=== PATIENT | female | born 1945 | race Caucasian/White ===

== ENCOUNTER 2019-01-23 01:30 | Outpatient (CLI) | payer MEDICARE, SELFPAY ==
[2019-01-23 08:07] LABS: ALT 27 U/L (12-78); AST 14 U/L (15-37); Albumin 3.6 g/dL (3.4-5.0); Alkaline Phosphatase 85 U/L (46-116); Bilirubin, Total 0.4 mg/dL (0.2-1.0); CREATININE 0.83 mg/dL (0.55-1.02); Potassium 4.2 mmol/L (3.5-5.1); Total Protein 7.5 g/dL (6.4-8.2)
[2019-01-23 08:18] LABS: Calculated LDL 132 mg/dL; Cholesterol 235 mg/dL (50-200); GGT 33 U/L (5-55); HDL Cholesterol 97 mg/dL (40-60); Triglyceride 33 mg/dL (30-150)
== END 2019-01-23 01:50 ==
PROVIDERS: PCP Family Medicine; Visit Provider Family Medicine
DX: I10 Essential (primary) hypertension (principal); E78.5 Hyperlipidemia, unspecified; E66.3 Overweight
CPT/HCPCS: 36415; 80061; 80076; 83721; 82565; 82977; 84132

== ENCOUNTER → 2019-02-02 12:59 | Outpatient (BNVA) | payer MEDICARE, SELFPAY | PROVIDERS: PCP Family Medicine; Referring Provider Family Medicine; Visit Provider Surgery | DX: L72.0 Epidermal cyst (principal); I10 Essential (primary) hypertension | CPT/HCPCS: 99212; 99213 ==

== ENCOUNTER → 2019-02-09 10:58 | Outpatient (BNVA) | payer MEDICARE, SELFPAY | PROVIDERS: PCP Family Medicine; Referring Provider Family Medicine; Visit Provider Surgery | DX: L72.3 Sebaceous cyst (principal) | CPT/HCPCS: 11440 ==

== ENCOUNTER 2020-01-25 02:17 | Outpatient (CLI) | payer MEDICARE, SELFPAY ==
[2020-01-25 08:46] LABS: CREATININE 0.75 mg/dL (0.55-1.02); Calculated LDL 133 mg/dL (<100); Cholesterol 209 mg/dL (<200); Glucose 107 mg/dL (74-106); HDL Cholesterol 63 mg/dL (40-60); Potassium 3.7 mmol/L (3.5-5.1); Triglyceride 66 mg/dL (<150)
[2020-01-30 03:34] LABS: 1,25-Dihydroxyvitamin D 35 pg/mL (18-78)
== END 2020-01-25 02:37 ==
PROVIDERS: PCP Family Medicine; Visit Provider Family Medicine
DX: I10 Essential (primary) hypertension (principal); E55.9 Vitamin D deficiency, unspecified; R73.9 Hyperglycemia, unspecified
CPT/HCPCS: 36415; 80061; 82947; 82565; 82652; 84132

== ENCOUNTER 2020-04-14 00:47 | Outpatient (CLI) | payer MEDICARE, SELFPAY ==
--- NOTE | 2020-04-14 08:00 | DI.US_ITS ---
EXAM: US PELVIS TRANSVAGINAL CLINICAL HISTORY: POSTMENOPAUSAL VAGINAL BLEEDING,N95.0 TECHNIQUE: Ultrasound performed using standard protocol. COMPARISON: US PELVIS TRANSVAG from 04/04/2017 FINDINGS: Pelvic ultrasound was performed transabdominally and transvaginally. There is an incidental finding of a 2 cm in diameter vascular mass of floor of the urinary bladder hi ghly suspicious for transitional cell carcinoma. The ovaries have normal appearance, measuring 21 x 14 x 13 millimeters in diameter for the right ovar y 25 x 12 x 14 millimeters in diameter for the left ovary. Myometrium is unremarkable in appearance and the uterus measures 62 x 26 x 32 millimeters with a 2 mi llimeter homogeneous endometrial stripe. There is small quantity of fluid in the cervical canal which is an abnormal finding in this age group . IMPRESSION: Incidental finding of urinary bladder mass highly suspicious for transitional cell carcinoma. Correl ation with cystoscopy recommended. Nonspecific fluid in the cervical canal, possibility of endometrial pathology is raised, endometrial biopsy should be considered. DATA REPOSITORY:
== END 2020-04-14 01:07 ==
PROVIDERS: PCP Family Medicine; Visit Provider Nurse Practitioner Family
DX: N32.89 Other specified disorders of bladder (principal); N95.0 Postmenopausal bleeding
CPT/HCPCS: 76830; 76856

== ENCOUNTER → 2020-04-22 12:58 | Outpatient (BNVA) | payer MEDICARE, SELFPAY | PROVIDERS: PCP Family Medicine; Referring Provider Family Medicine; Visit Provider Urology | DX: N32.89 Other specified disorders of bladder (principal); I10 Essential (primary) hypertension | CPT/HCPCS: 81003; 99203; 99214 ==

== ENCOUNTER 2020-05-01 08:45 | Outpatient (CLI) | payer MEDICARE, SELFPAY ==
[2020-05-03 10:19] LABS: SARS-CoV-2 RNA Not Detected (NotDetected); SARS-CoV-2 RNA Source Nasal/Nares
== END 2020-05-01 09:05 ==
PROVIDERS: PCP Family Medicine; Visit Provider Urology
DX: Z11.59 Encounter for screening for other viral diseases (principal); Z01.818 Encounter for other preprocedural examination
CPT/HCPCS: U0003

== ENCOUNTER 2020-05-05 09:01 | Day surgery (SDC) | payer MEDICARE, SELFPAY ==
[2020-05-05 09:19] VITALS: BP 145/92; PULSE 83; RESP 16; TEMP 36.3; O2SAT 97
[2020-05-05] MEDS: Lactated Ringers 1,000 ML 80 ML IV (09:53)
--- NOTE | 2020-05-05 11:51 | HPE_ITS ---
Date of service: 05/05/20 Time of Service: 11:51 Assessment and Plan Assessment and plan (1) Bladder mass: Status: Acute Assessment and plan: We will go ahead with cystoscopy and TURBT History of Present Illness History of Present Illness Chief Complaint: Bladder mass Narrative: This is a 74-year-old woman [facility] The patient was being evaluated for vaginal bleeding. She had a pelvic ultrasound which showed an incidental bladder mass. She admits that she has noticed her urine is a bit darker in the past few weeks. She also has some intermittent flow which seems to be new for her. She has not seen gross hematuria or particles within the urine. She has no flank pain. She is a previous smoker having quit over 23 years ago. She is not on any types of blood thinners. She has not had any prior bladder surgeries. Review of Systems Narrative: No fevers or chills. c/o fatigue No dysphasia No diabetes or thyroid No shortness of breath, cough or hemoptysis No chest pain or palpitations No nausea, vomiting, hepatitis, ulcers, jaundice, diarrhea or constipation No seizures, strokes or peripheral neuropathy No bleeding disorders or anemia No gout. Hx low back discomfort [facility] Medical History (Updated 05/05/20 @ 11:51 by Pan Hazel MD) Back pain Bladder mass Breast cancer Depression Hyperlipidemia Hypertension Overweight Post-menopausal bleeding 2010. onset. u/s 3mm ES. Uterus [id number]. EMBx: atrophic endometrium. 2011. continued daily bleeding. Hysteroscopy, D&C. Inactive endometrium. 2012. continued daily dark/brown blood. 2014. u/s ES 3mm. 2015. No w/u. 11/2016. contact bleeding at ext os. Sebaceous cyst Surgical History (Updated 05/05/20 @ 09:37 by Josefina Acuna) Abnormal vaginal bleeding (05/10/17) Multiple U/S of ES and several EMBX. 05/04/2017 Hysteroscopy and D&C. Benign findings. 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 Daughter No problems noted. Brother No problems noted. Brother No problems noted. Brother No problems noted. Social History (Updated 01/28/20 @ 16:42 by Heather Lopez) Smoking/Tobacco Use Status: Former Tobacco Use Tobacco: How many years used: 24 Second Hand Exposure: Yes Smoking risk assessment performed?: Yes Alcohol Intake: current Alcohol Intake frequency: 0-2 drinks per day Alcohol type: hard liquor Drug use: Never Substance use type: does not use Caregiver/Support person: No Household members: spouse and other Details: [place] Housing: house Number of Children: 2 Communication Needs: None Do you need help understanding health information?: Never Pets and animals: No Sexually active: No Do you think of yourself as: straight/heterosexual Current gender identity: female What is your relationship status?: How often do you talk on the phone with friends or family?: once per week Panel score (0-1 are the most socially isolated patients): 1 What type of physical activity do you participate in: bicycling Duration: 15-30 minutes/day Frequency: 5-6 times per week Emi/Restoration: Holiness Seatbelt use: always Helmet use: Yes Drive intox or ride w/intox 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: No Do you feel safe at home: Yes Do you feel safe in your relationship?: Yes Additional Social history: Patient is daughter that resides in [place] Female Reproductive History Menstrual Menopause type: natural History History 2 Para Hx # Term Pregnancies 2 Multiple births Hx # Pregnancies Ectopic pregnancies AB induced Hx Number of Living Children AB spontaneous Meds Home Medications and Allergies Home Medications Medication Instructions Recorded Confirmed Type Chlorahexide Mouth Rinse 10 ml PO DAILY 05/04/17 05/05/20 History cholecalciferol (vitamin D3) 25 5,000 unit PO DAILY #90 tab 01/18/20 05/05/20 History mcg (1,000 unit) tablet paroxetine HCl 30 mg tablet 30 mg PO DAILY #90 tab 01/18/20 05/05/20 Rx hydrochlorothiazide 12.5 mg tablet 12.5 - 25 mg PO DAILY tab-cap 03/25/20 05/05/20 History estradiol 1 g VAGINAL .COMPLEX #24 g 03/27/20 05/05/20 Rx atorvastatin 20 mg PO DAILY 05/02/20 05/05/20 History Allergies Allergy/AdvReac Type Severity Reaction Status Date / Time lisinopril AdvReac COUGH Verified 05/05/20 09:28 DUST Allergy Intermediate Uncoded 05/05/20 09:28 Exam Const General: cooperative, comfortable and no acute distress Neck Neck: supple Resp Effort & Inspection: normal respiratory effort Auscultation: clear to auscultation bilaterally Cardio Rate: regular rate Rhythm: regular rhythm GI Palpation: soft and no masses Neuro General: patient alert, patient awake and patient oriented x3 Results Last Vital Signs Temp 36.3 C L 05/05/20 09:19 Pulse 83 05/05/20 09:19 Resp 16 05/05/20 09:19 BP 145/92 H 05/05/20 09:19 Pulse Ox 97 05/05/20 09:19 COVID-19 Screening Have you, or household traveled for leisure in last 14 days?: No Had IN PERSON contact w/suspected or confirmed C-19 person: No
[2020-05-05] MEDS: ceFAZolin 2 GM/50 ML BAG IVPB (12:17)
[2020-05-05] MEDS: Lidocaine 2% Jelly 6 ML SYR (12:27)
--- NOTE | 2020-05-05 12:47 | W.PM.DSUDISC ---
Discharge Plan Disposition Patient Disposition: HOME Condition: Stable Discharge Details Attending Provider: Pan Hazel Primary Care Provider: Wood Yuen Home Meds and New Rx's Prescriptions: New tramadol 50 mg tablet 50 mg PO Q6H PRNQty: 15 RF: 0 No Action paroxetine HCl 30 mg tablet 30 mg PO DAILY Qty: 90 RF: 3 hydrochlorothiazide 12.5 mg tablet 12.5 - 25 mg PO DAILY RF: 0 estradiol 0.01 % (0.1 mg/gram) cream 1 g vaginal .COMPLEX Qty: 24 RF: 3 cholecalciferol (vitamin D3) 25 mcg (1,000 unit) tablet 5,000 unit PO DAILY Qty: 90 RF: 4 Chlorahexide Mouth Rinse 10 ml PO DAILY RF: 0 atorvastatin 20 mg tablet 20 mg PO DAILY RF: 0 Discharge Instructions Additional Instructions: Saxena to leg bag Catheter removal in 3 to 5 days F/U appt 1 to 2 weeks for pathology results Activity:: no lkifting over 10 pounds for 1 week Shower/Bathe:: 24 hours Diet:: As Tolerated Discharge Orders Discharge Orders: Discharge Order (Routine); Ordered 05/05/20 Ordered By: Pan Hazel DS: Diagnosis Discharge Diagnosis (1) Bladder mass: Status: Acute
--- NOTE | 2020-05-05 12:53 | BLADDER_PTH ---
PATIENT: Emelia Raza LOC: [facility] U#:[id number] AGE/SX: 74/F ROOM: RE05/05/[address]: Pan Hazel MD : 1945 BED: DIS: 05/05/2020 SPEC #: [id number] RECD: 05/05/20 17:30 STATUS: BEBETO REQ #: [id number] TITO: 05/05/20 12:[address]: Pan Hazel DEPT: Surgical Specimen RECD BY: Lima Olvera ENTERED: 05/05/20 17:30 SP TYPE: Bladder OTHR DR: Wood Yuen MD Tissues: 1 - BLADDER CURRETTINGS Procedures: GROSS AND MICRO LEVEL 5 Comments: [id number]
[2020-05-05 12:55] VITALS: BP 137/69; PULSE 73; RESP 23; TEMP 36.4; O2SAT 94
[2020-05-05 13:00] VITALS: BP 133/74; PULSE 75; RESP 20; TEMP 36.4; O2SAT 94
[2020-05-05 13:05] VITALS: BP 151/88; PULSE 74; RESP 24; TEMP 36.4; O2SAT 94
--- NOTE | 2020-05-05 13:31 | W.PM.DSUDISC ---
Discharge Plan Disposition Patient Disposition: HOME Condition: Stable Discharge Details Attending Provider: Pan Hazel Primary Care Provider: Wood Yuen Home Meds and New Rx's Prescriptions: New oxybutynin chloride 5 mg tablet 5 mg PO Q8H PRN (Reason: bladder spasm) Qty: 15 RF: 0 tramadol 50 mg tablet 50 mg PO Q8H PRN (Reason: pain) Qty: 15 RF: 0 No Action paroxetine HCl 30 mg tablet 30 mg PO DAILY Qty: 90 RF: 3 hydrochlorothiazide 12.5 mg tablet 12.5 - 25 mg PO DAILY RF: 0 estradiol 0.01 % (0.1 mg/gram) cream 1 g vaginal .COMPLEX Qty: 24 RF: 3 cholecalciferol (vitamin D3) 25 mcg (1,000 unit) tablet 5,000 unit PO DAILY Qty: 90 RF: 4 Chlorahexide Mouth Rinse 10 ml PO DAILY RF: 0 atorvastatin 20 mg tablet 20 mg PO DAILY RF: 0 Discharge Instructions Additional Instructions: Saxena to leg bag Catheter removal in 3 to 5 days F/U appt 1 to 2 weeks for pathology results Stand Alone Forms: [facility] Kathia Carmona ([facility]) Activity:: no lkifting over 10 pounds for 1 week Shower/Bathe:: 24 hours Diet:: As Tolerated Discharge Orders Discharge Orders: Discharge Order (Routine); Ordered 05/05/20 Ordered By: Pan Hazel DS: Diagnosis Discharge Diagnosis (1) Bladder mass: Status: Acute
[2020-05-05 13:46] VITALS: BP 140/83; PULSE 90; RESP 16; TEMP 36.2; O2SAT 93
[2020-05-05] MEDS: Fluconazole 100 MG TAB 200 MG PO (14:05)
--- NOTE | 2020-05-05 14:15 | ROE_ITS ---
Date of service: 05/05/20 Time of Service: 12:31 Operative Note Operative Note DATE OF PROCEDURE: 05/05/20 PRE-OP DIAGNOSIS: Bladder mass POST-OP DIAGNOSIS: same PROCEDURE: Cystoscopy with TURBT (2 to 5 cm) SURGEON: Pan Hazel ANESTHESIA: other (general without intubation) ESTIMATED BLOOD LOSS: 100 PATHOLOGY: other (bladder mass) COMPLICATIONS: None Patient was transported to: PACU Patient's condition: stable Implants: 16 Belgian edwards catheter with 5 cc balloon Indications: This is a 54-year-old woman who was being evaluated for vaginal bleeding. She underwent a pelvic ultrasound which demonstrated a mass within her bladder. He presents now for cystoscopy and possible transurethral resection of a bladder lesion Findings: Papillary lesion lateral to left ureteral orifice Procedure Description: The patient was brought to the operating room on 05/05/2020. She was given preoperative IV antibiotics. After successful induction of general anesthesia, she was placed in the dorsal lithotomy position. Her genitalia was prepped and draped sterilely. 2% Xylocaine jelly was instilled into the urethra to act as a local anesthetic. He 24 Belgian resectoscope sheath was passed through the urethra into the bladder. The catheter balloon was inflated with 10 cc of sterile water and the catheter was hooked to gravity drainage. The patient tolerated this procedure well We elected not to instill a chemotherapy agent into the bladder due to the depth of this initial resection.
== END 2020-05-05 14:30 | disposition home or self-care (01) ==
PROVIDERS: PCP Family Medicine; Visit Provider Urology
PROC: 0TBB8ZZ Excision of Bladder, Via Natural or Artificial Opening Endoscopic (ICD-10-PCS; CPT 52235; principal; 2020-05-05 11:00)
DX: C67.9 Malignant neoplasm of bladder, unspecified (principal); N32.89 Other specified disorders of bladder; Z85.3 Personal history of malignant neoplasm of breast; F32.9 Major depressive disorder, single episode, unspecified; E78.5 Hyperlipidemia, unspecified; I10 Essential (primary) hypertension; Z87.891 Personal history of nicotine dependence
CPT/HCPCS: 52235; NC; 88307; J0690; J1100; J2405

== ENCOUNTER → 2020-05-08 09:34 | Outpatient (BNVA) | payer MEDICARE, SELFPAY | PROVIDERS: PCP Family Medicine; Referring Provider Family Medicine; Visit Provider Urology | DX: R33.8 Other retention of urine (principal); Z46.6 Encounter for fitting and adjustment of urinary device | CPT/HCPCS: 51702; 99213 ==

== ENCOUNTER → 2020-05-09 08:02 | Outpatient (BNVA) | payer MEDICARE, SELFPAY | PROVIDERS: PCP Family Medicine; Referring Provider Family Medicine; Visit Provider Urology | DX: C67.9 Malignant neoplasm of bladder, unspecified (principal); I10 Essential (primary) hypertension; Z46.6 Encounter for fitting and adjustment of urinary device | CPT/HCPCS: 99213 ==

== ENCOUNTER 2020-05-10 12:19 | Emergency (ER) | payer MEDICARE, SELFPAY ==
[2020-05-10 12:29] VITALS: BP 155/85; PULSE 94; RESP 16; TEMP 36; O2SAT 95
--- NOTE | 2020-05-10 12:50 | NUR.NOTE ---
bladder bscan shows 908mls, Lalito provider notified. 16F edwards inserted sterile technique with immediate drainage of bloody urine, no clots present. pt reports she has been bleeding. 1100 emptied, 5mls sent to lab for spec
[2020-05-10 13:14] LABS: Clarity Cloudy (Clear)
[2020-05-10 13:15] LABS: RBC >50 HPF (0-2); WBC >50 HPF (0-5)
[2020-05-10 13:16] LABS: C & S Indicated? Yes
--- NOTE | 2020-05-10 13:46 | ED.GENADUL_ITS ---
Discharge Plan Disposition Patient Disposition: HOME Condition: Stable Discharge Details Clinical Impression: Acute urinary retention, Acute UTI Primary Care Provider: Wood Yuen ED Provider: Lalito Crzu Home Meds and New Rx's Prescriptions: New cephalexin [Keflex] 500 mg capsule 500 mg PO BID 7 Days Qty: 14 RF: 0 Continued paroxetine HCl 30 mg tablet 30 mg PO DAILY Qty: 90 RF: 3 hydrochlorothiazide 12.5 mg tablet 12.5 - 25 mg PO DAILY RF: 0 estradiol 0.01 % (0.1 mg/gram) cream 1 g vaginal .COMPLEX Qty: 24 RF: 3 cholecalciferol (vitamin D3) 25 mcg (1,000 unit) tablet 5,000 unit PO DAILY Qty: 90 RF: 4 atorvastatin 20 mg tablet 20 mg PO DAILY RF: 0 oxybutynin chloride 5 mg tablet 5 mg PO Q8H PRN (Reason: bladder spasm) Qty: 15 RF: 0 tramadol 50 mg tablet 50 mg PO Q8H PRN (Reason: pain) Qty: 15 RF: 0 No Action Chlorahexide Mouth Rinse 10 ml PO DAILY RF: 0 Discharge Instructions Instructions: Urinary Tract Infection in Women (ED), Acute Urinary Retention in Women (ED) Additional Instructions: Keflex as directed. Please leave the Saxena catheter in place. I attempted to reach your urologist, Dr. Hazel. He was left a message and I will carbon copy him on this note. I recommend reaching out to his office on Tuesday for prompt outpatient reevaluation. You will need to have the catheter removed likely sometime next week and follow-up regarding your urinary tract infection. Please watch for new or worsening symptoms and return to the ER for any concerns. Referrals: Pan Hazel MD [ [facility] STAFF PHYSICIAN] - Medical Decision Making 74-year-old female with recent urological procedure on Tuesday, subsequently had Saxena catheter removed yesterday. Now presents with urinary retention. Bladder scanner on presentation was approximately 908. Saxena catheter was placed prior to my evaluation, over 1100 cc drained of bloody urine, upon my evaluation patient was asymptomatic. She appears well, nontoxic. Both blood pressure and heart rate trending downward after her bladder was emptied. Will obtain urinalysis and reassess. Urine is red, cloudy, greater than 50 red cells and white cells. Discussed urinalysis with patient, will initiate Keflex therapy. I see no clear indication for emergent blood work as she presents with urinary retention status post procedure and Saxena catheter removal yesterday. I did place a call to Dr. Hazel to make them aware of the patient's ER visit, to help expedite outpatient follow-up, and to be sure that he did not need anything else completed in the ER while the patient was already here. Unfortunately he was not build automation engineer, a message was left but I did not receive a call back prior to the patient being discharged. She will reach out to his office on Tuesday and I will CC this note to him. Patient comfortable with discharge and has no additional questions or concerns. First dose of Keflex given here, prescription for 7 days given. She will be discharged from the ER with indwelling Saxena catheter in place Medical Records Medical records reviewed: Yes I reviewed the patient's medical records. Lab Data Lab results reviewed: Yes I reviewed the patient's lab results. Labs: 05/10/20 12:44 Urine - Reflex from Ua Urine Culture - Pending Laboratory Tests Range/Units 05/10/20 12:44 Urine Color (Yellow) Red Urine Clarity (Clear) Cloudy Urine pH Not Applicable Ur Specific Dale Not Applicable Urine Protein Not Applicable Urine Ketones Not Applicable Urine Blood Not Applicable Urine Nitrite Not Applicable Urine Bilirubin Not Applicable Urine Urobilinogen Not Applicable Ur Leukocyte Esterase Not Applicable Urine RBC (0-2) HPF >50 H Urine WBC (0-5) HPF >50 H Ur Epithelial Cells (Negative) HPF Urine Crystals (Negative) HPF Urine Bacteria (Negative) HPF Urine Mucus Not Applicable Ur Culture Indicated? Yes Urine Glucose Not Applicable HPI General Mode of arrival: ambulatory . Date/Time Provider Initiated Documentation: 05/10/20 12:20 . Limitations to Documentation: no limitations . Information obtained by: patient . HPI Narrative: This is a 74-year-old female with past medical history that includes hypertension, history of alcohol abuse, hyperlipidemia, carcinoma of the bladder with recent cystoscopy and TURBT on Tuesday by Dr. Hazel. Subsequently had her indwelling Saxena catheter removed yesterday. She was able to urinate a little bit during the day but as the night went on and early into the morning she was unable to urinate whatsoever. Presents complaining of lower abdominal-pelvic pressure from a full bladder. Denies any other concerns or complaints such as fever, chest pain, back pain, abdominal pain, back pain, vaginal bleeding or discharge. She does state that she noticed some blood in her urine although this has been ongoing. Related Data Home Medications Medication Instructions Recorded Confirmed Chlorahexide Mouth Rinse 10 ml PO DAILY 05/04/17 05/10/20 cholecalciferol (vitamin D3) 25 5,000 unit PO DAILY #90 tab 01/18/20 05/10/20 mcg (1,000 unit) tablet paroxetine HCl 30 mg tablet 30 mg PO DAILY #90 tab 01/18/20 05/10/20 hydrochlorothiazide 12.5 mg tablet 12.5 - 25 mg PO DAILY tab-cap 03/25/20 05/10/20 estradiol 1 g VAGINAL .COMPLEX #24 g 03/27/20 05/05/20 atorvastatin 20 mg PO DAILY 05/02/20 05/10/20 oxybutynin chloride 5 mg PO Q8H PRN #15 tab 05/05/20 tramadol 50 mg PO Q8H PRN #15 tab 05/05/20 cephalexin [Keflex] 500 mg PO BID 7 Days #14 cap 05/10/20 Previous Rx's Medication Instructions Recorded paroxetine HCl 30 mg tablet 30 mg PO DAILY #90 tab 01/18/20 estradiol 1 g VAGINAL .COMPLEX #24 g 03/27/20 oxybutynin chloride 5 mg PO Q8H PRN #15 tab 05/05/20 tramadol 50 mg PO Q8H PRN #15 tab 05/05/20 cephalexin [Keflex] 500 mg PO BID 7 Days #14 cap 05/10/20 Allergies Allergy/AdvReac Type Severity Reaction Status Date / Time lisinopril AdvReac COUGH Verified 05/10/20 13:39 DUST Allergy Intermediate Uncoded 05/05/20 09:28 General Stated Complaint: Urinary GUILLERMO: 3 Review of Systems Constitutional Constitutional: Denies fever(s) Cardiovascular Cardiovascular: Denies chest pain and Denies dyspnea Respiratory Respiratory: Denies cough and Denies dyspnea Gastrointestinal Gastrointestinal: Reports abdominal pain (Pelvic pressure), Denies nausea and Denies vomiting Genitourinary Genitourinary: Denies abnormal vaginal bleeding, Denies difficulty voiding, Denies dysuria, Reports urinary hesitancy and Denies vaginal discharge Musculoskeletal Musculoskeletal: Denies back pain Integumentary/Breasts Skin/Breast: Denies rash [facility] Medical History Back pain Bladder mass Breast cancer Depression Hyperlipidemia Hypertension Overweight Post-menopausal bleeding 2010. onset. u/s 3mm ES. Uterus [id number]. EMBx: atrophic endometrium. 2011. continued daily bleeding. Hysteroscopy, D&C. Inactive endometrium. 2012. continued daily dark/brown blood. 2013. u/s ES 3mm. 2015. No w/u. 11/2016. contact bleeding at ext os. Sebaceous cyst Urothelial carcinoma of bladder Surgical History Abnormal vaginal bleeding (05/10/17) Multiple U/S of ES and several EMBX. 05/04/2017 Hysteroscopy and D&C. Benign findings. 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 Daughter No problems noted. Brother No problems noted. Brother No problems noted. Brother No problems noted. Social History Smoking/Tobacco Use Status: Former Tobacco Use Tobacco: How many years used: 24 Second Hand Exposure: Yes Smoking risk assessment performed?: Yes Alcohol Intake: never Drug use: Never Substance use type: does not use Caregiver/Support person: No Household members: spouse and other Details: [place] Housing: house Number of Children: 2 Communication Needs: None Do you need help understanding health information?: Never Pets and animals: No Sexually active: No Do you think of yourself as: straight/heterosexual Current gender identity: female What is your relationship status?: How often do you talk on the phone with friends or family?: once per week Panel score (0-1 are the most socially isolated patients): 1 What type of physical activity do you participate in: bicycling Duration: 15-30 minutes/day Frequency: 5-6 times per week Emi/Lutheran: Anabaptist Seatbelt use: always Helmet use: Yes Drive intox or ride w/intox 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: No Do you feel safe at home: Yes Do you feel safe in your relationship?: Yes Additional Social history: Patient is daughter that resides in [place] Female Reproductive History Menstrual Menopause type: natural History History 2 Para Hx # Term Pregnancies 2 Multiple births Hx # Pregnancies Ectopic pregnancies AB induced Hx Number of Living Children AB spontaneous Exam Const General: cooperative, healthy appearing, comfortable and no acute distress Orientation: alert and awake [facility] Head: normal to inspection, normocephalic and atraumatic Face and sinus: normal facial exam Mouth: moist mucous membranes Eyes General: appearance normal, both eyes and all related structures Conjunctivae: conjunctivae normal Sclera: sclerae normal Neck Neck: normal visual inspection, full ROM, trachea midline and supple Resp Effort & Inspection: normal respiratory effort and able to speak in complete sentences Auscultation: clear to auscultation bilaterally Cardio Rate: regular rate Rhythm: regular rhythm GI Palpation: soft, not firm, no guarding, no pulsatile masses and nontender Auscultation: normal bowel sounds Back/Spine/Pelvis Back: No back tenderness Skin General skin exam: no rashes or lesions noted Neuro General: patient alert, patient awake, moves all extremities and no focal motor deficits Sensory Exam: no sensory deficits noted Psych Appearance: grossly normal Mental Status: mental status grossly normal Course Vital Signs Vital signs: Vital Signs Temperature 36 C L 05/10/20 12:29 Pulse 94 H 05/10/20 12:29 Respiratory Rate 16 05/10/20 12:29 Blood Pressure 155/85 H 05/10/20 12:29 Pulse Oximetry 95 05/10/20 12:29 Temperature 36 C L 05/10/20 12:29 Temperature Source Temporal Artery Scan 05/10/20 12:29 Pulse 94 H 05/10/20 12:29 Respiratory Rate 16 05/10/20 12:29 Respiratory Effort Non-Labored 05/10/20 13:36 Blood Pressure 155/85 H 05/10/20 12:29 Pulse Oximetry 95 05/10/20 12:29 Oxygen Delivery Method Room Air 05/10/20 12:29 Oxygen Flow Rate 0 05/10/20 12:29 Pain Level 0 05/10/20 12:48 Lab/Test Results Lab/Test Results: 05/10/20 12:44 Urine - Reflex from Ua Urine Culture - Pending Laboratory Tests Range/Units 05/10/20 12:44 Urine Color (Yellow) Red Urine Clarity (Clear) Cloudy Urine pH Not Applicable Ur Specific Dale Not Applicable Urine Protein Not Applicable Urine Ketones Not Applicable Urine Blood Not Applicable Urine Nitrite Not Applicable Urine Bilirubin Not Applicable Urine Urobilinogen Not Applicable Ur Leukocyte Esterase Not Applicable Urine RBC (0-2) HPF >50 H Urine WBC (0-5) HPF >50 H Ur Epithelial Cells (Negative) HPF Urine Crystals (Negative) HPF Urine Bacteria (Negative) HPF Urine Mucus Not Applicable Ur Culture Indicated? Yes Urine Glucose Not Applicable
[2020-05-10] MEDS: Cephalexin 500 MG CAP PO (14:16)
[2020-05-10 14:17] VITALS: BP 130/66; PULSE 73; TEMP 37; O2SAT 95
== END 2020-05-10 14:15 | disposition home or self-care (01) ==
PROVIDERS: Emergency Provider Physician Assistant; PCP Family Medicine
DX: N39.0 Urinary tract infection, site not specified (principal); R33.9 Retention of urine, unspecified; Y84.6 Urinary catheterization as the cause of abnormal reaction of the patient, or of later complication, without mention of misadventure at the time of the procedure; Z98.890 Other specified postprocedural states; C67.9 Malignant neoplasm of bladder, unspecified; I10 Essential (primary) hypertension
CPT/HCPCS: 51702; 99283; 81003; 81015; 87086

== ENCOUNTER → 2020-05-13 09:06 | Outpatient (BNVA) | payer MEDICARE, SELFPAY | PROVIDERS: PCP Family Medicine; Referring Provider Family Medicine; Visit Provider Nurse Practitioner Gerontology | DX: Z48.816 Encounter for surgical aftercare following surgery on the genitourinary system (principal); C67.9 Malignant neoplasm of bladder, unspecified; R33.8 Other retention of urine; I10 Essential (primary) hypertension | CPT/HCPCS: 99213 ==

== ENCOUNTER → 2020-05-27 15:29 | Outpatient (BNVA) | payer MEDICARE, SELFPAY | PROVIDERS: PCP Family Medicine; Referring Provider Family Medicine; Visit Provider Nurse Practitioner Gerontology | DX: C67.9 Malignant neoplasm of bladder, unspecified (principal); I10 Essential (primary) hypertension | CPT/HCPCS: 51720; 81003; 99213; J9201 ==

== ENCOUNTER → 2020-06-03 14:58 | Outpatient (BNVA) | payer MEDICARE, SELFPAY | PROVIDERS: PCP Family Medicine; Referring Provider Family Medicine; Visit Provider Nurse Practitioner Gerontology | DX: C67.9 Malignant neoplasm of bladder, unspecified (principal) | CPT/HCPCS: 51702; 81003; 99213; J9201 ==

== ENCOUNTER → 2020-06-10 14:57 | Outpatient (BNVA) | payer MEDICARE, SELFPAY | PROVIDERS: PCP Family Medicine; Referring Provider Family Medicine; Visit Provider Nurse Practitioner Gerontology | DX: C67.9 Malignant neoplasm of bladder, unspecified (principal) | CPT/HCPCS: 51720; 81003; 99213; J9201 ==

== ENCOUNTER → 2020-06-17 14:57 | Outpatient (BNVA) | payer MEDICARE, SELFPAY | PROVIDERS: PCP Family Medicine; Referring Provider Family Medicine; Visit Provider Nurse Practitioner Gerontology | DX: Z51.11 Encounter for antineoplastic chemotherapy (principal); C67.9 Malignant neoplasm of bladder, unspecified | CPT/HCPCS: 51720; 81003; 99213; J9201 ==

== ENCOUNTER → 2020-06-24 14:59 | Outpatient (BNVA) | payer MEDICARE, SELFPAY | PROVIDERS: PCP Family Medicine; Referring Provider Family Medicine; Visit Provider Nurse Practitioner Gerontology | DX: C67.9 Malignant neoplasm of bladder, unspecified (principal) | CPT/HCPCS: 51720; 81003; 99213; J9201 ==

== ENCOUNTER → 2020-07-01 14:27 | Outpatient (BNVA) | payer MEDICARE, SELFPAY | PROVIDERS: PCP Family Medicine; Referring Provider Family Medicine; Visit Provider Nurse Practitioner Gerontology | DX: Z51.11 Encounter for antineoplastic chemotherapy (principal); C67.9 Malignant neoplasm of bladder, unspecified | CPT/HCPCS: 51720; 81003; J9201 ==

== ENCOUNTER → 2020-08-12 12:56 | Outpatient (BNVA) | payer MEDICARE, SELFPAY | PROVIDERS: PCP Family Medicine; Referring Provider Family Medicine; Visit Provider Urology | DX: C67.9 Malignant neoplasm of bladder, unspecified (principal) | CPT/HCPCS: 52000; 81003; 99213 ==

== ENCOUNTER 2020-08-25 06:15 | Day surgery (SDC) | payer MEDICARE, SELFPAY ==
[2020-08-25 06:22] VITALS: BP 126/73; PULSE 88; RESP 17; TEMP 36.6; O2SAT 94
[2020-08-25] MEDS: Lactated Ringers 1,000 ML 80 ML IV (06:50)
--- NOTE | 2020-08-25 07:02 | HPE_ITS ---
Date of service: 08/25/20 Time of Service: 07:03 Assessment and Plan Assessment and plan (1) Urothelial carcinoma of bladder: Status: Acute Assessment and plan: We will perform cystoscopy, transurethral resection of her recurrent tumor and instillation of mitomycin-C into the bladder. Her follow-up recommendations will all depend on her surgical pathology, but we now have access to BCG for an induction series if indicated History of Present Illness History of Present Illness Chief Complaint: Bladder cancer Narrative: This is a 74-year-old woman who has a history of noninvasive urothelial cell carcinoma of the bladder. She was treated with transurethral resection followed by intravesical gemcitabine. On surveillance cystoscopy, there appeared to be a recurrence. She presents now for transurethral resection. Review of Systems Narrative: No fevers or chills Decreased visual acuity due to macular degeneration. No dysphasia No diabetes or thyroid dysfunction No shortness of breath, cough or hemoptysis No chest pain or palpitations No nausea, vomiting, hepatitis, ulcers, jaundice No seizures, strokes or peripheral neuropathy No bleeding disorders or anemia No gout [facility] Medical History Back pain 2019. sacrum. worse with standing or walking. Bladder mass Breast cancer Depression Fluid in endometrial cavity 03/2020. in endocervical canal. ES 1mm. incidental finding on pelvis u/s 06/09/20 . Unable to perform EMBx. Stenotic os. Hyperlipidemia Hypertension Overweight Post-menopausal bleeding 2010. onset. u/s 3mm ES. Uterus [id number]. EMBx: atrophic endometrium. 2011. continued daily bleeding. Hysteroscopy, D&C. Inactive endometrium. 2012. continued daily dark/brown blood. 2014. u/s ES 3mm. 2015. No w/u. 11/2016. contact bleeding at ext os. Sebaceous cyst Urothelial carcinoma of bladder Vaginal atrophy Dx 2010. felt to be etiology of vaginal bleeding. 2020. Vaginal E2 with improvement in bleeding Surgical History Abnormal vaginal bleeding (05/10/17) Multiple U/S of ES and several EMBX. 05/04/2017 Hysteroscopy and D&C. Benign findings. 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 Daughter No problems noted. Brother No problems noted. Brother No problems noted. Brother No problems noted. Social History Smoking/Tobacco Use Status: Former Tobacco Use Quit Date: 06/20/95 Tobacco: How many years used: 24 Second Hand Exposure: Yes Smoking risk assessment performed?: Yes Alcohol Intake: former Drug use: Never Substance use type: does not use Caregiver/Support person: No Household members: spouse and other Details: [place] Housing: house Number of Children: 2 Communication Needs: None Do you need help understanding health information?: Never Pets and animals: No Sexually active: No Do you think of yourself as: straight/heterosexual Current gender identity: female What is your relationship status?: How often do you talk on the phone with friends or family?: once per week Panel score (0-1 are the most socially isolated patients): 1 What type of physical activity do you participate in: bicycling Duration: 15-30 minutes/day Frequency: 5-6 times per week Emi/Adventist: Adventist Seatbelt use: always Helmet use: Yes Drive intox or ride w/intox bulk driver: No Do you feel safe at home: Yes Do you feel safe in your relationship?: Yes Female Reproductive History Menstrual Menopause type: natural History History 2 Para Hx # Term Pregnancies 2 Multiple births Hx # Pregnancies Ectopic pregnancies AB induced Hx Number of Living Children AB spontaneous Meds Home Medications and Allergies Allergies Allergy/AdvReac Type Severity Reaction Status Date / Time lisinopril AdvReac COUGH Verified 08/25/20 06:27 DUST Allergy Intermediate Other (See Uncoded 08/25/20 06:27 Comment) Home Medications Medication Instructions Recorded Confirmed Type Chlorahexide Mouth Rinse 10 ml PO DAILY 05/04/17 08/25/20 History cholecalciferol (vitamin D3) 25 5,000 unit PO DAILY #90 tab 01/18/20 08/25/20 History mcg (1,000 unit) tablet paroxetine HCl 30 mg tablet 30 mg PO DAILY #90 tab 01/18/20 08/25/20 Rx hydrochlorothiazide 12.5 mg tablet 12.5 - 25 mg PO DAILY tab-cap 03/25/20 08/25/20 History estradiol 1 g VAGINAL .COMPLEX #24 g 03/27/20 08/25/20 Rx atorvastatin 20 mg PO DAILY 05/02/20 08/25/20 History oxybutynin chloride 5 mg PO Q8H PRN #15 tab 05/05/20 08/25/20 Rx Exam Const General: cooperative and comfortable Nutritional Appearance: obese Neck Neck: supple Resp Effort & Inspection: normal respiratory effort Auscultation: clear to auscultation bilaterally Cardio Rate: regular rate Rhythm: regular rhythm GI Palpation: soft and no masses Neuro General: patient alert, patient awake and patient oriented x3 Results Last Vital Signs Temp 36.6 C 08/25/20 06:22 Pulse 88 08/25/20 06:22 Resp 17 08/25/20 06:22 BP 126/73 08/25/20 06:22 Pulse Ox 94 08/25/20 06:22 COVID-19 Screening Have you, or household traveled for leisure in last 14 days?: No Had IN PERSON contact w/suspected or confirmed C-19 person: No
[2020-08-25] MEDS: ceFAZolin 2 GM/50 ML BAG IVPB (07:29)
[2020-08-25] MEDS: Lidocaine 2% Jelly 6 ML SYR (07:42)
--- NOTE | 2020-08-25 07:50 | BLADDER_PTH ---
PATIENT: Emelia Raza LOC: [facility] U#:[id number] AGE/SX: 74/F ROOM: RE08/25/[address]: Pan Hazel MD : 1945 BED: DIS: 08/25/2020 SPEC #: [id number] RECD: 08/25/20 12:32 STATUS: BEBETO REQ #: [id number] TITO: 08/25/20 07:[address]: Pan Hazel DEPT: Surgical Specimen RECD BY: Lima Olvera ENTERED: 08/25/20 12:32 SP TYPE: Bladder OTHR DR: Wood Yuen MD Tissues: 1 - BLADDER BIOPSY Procedures: GROSS AND MICRO LEVEL 4 Comments: [id number]
--- NOTE | 2020-08-25 08:04 | W.PM.DSUDISC ---
Discharge Plan Disposition Patient Disposition: HOME Condition: Stable Discharge Details Reason For Visit: bladder cancer Attending Provider: Pan Hazel Primary Care Provider: Wood Yuen Home Meds and New Rx's Prescriptions: No Action paroxetine HCl 30 mg tablet 30 mg PO DAILY Qty: 90 RF: 3 hydrochlorothiazide 12.5 mg tablet 12.5 - 25 mg PO DAILY RF: 0 estradiol 0.01 % (0.1 mg/gram) cream 1 g vaginal .COMPLEX Qty: 24 RF: 3 cholecalciferol (vitamin D3) 25 mcg (1,000 unit) tablet 5,000 unit PO DAILY Qty: 90 RF: 4 Chlorahexide Mouth Rinse 10 ml PO DAILY RF: 0 atorvastatin 20 mg tablet 20 mg PO DAILY RF: 0 oxybutynin chloride 5 mg tablet 5 mg PO Q8H PRN (Reason: bladder spasm) Qty: 15 RF: 0 Discharge Instructions Additional Instructions: Leave catheter clamped with Mitomycin C in place for 1 to 2 hours then unclamp and drain then remove edwards (unclamp, drain and remove catheter sooner if bladder pain) Followup 2 weeks to review surgical pathology Activity:: Activity as Tolerated Shower/Bathe:: 24 hours Diet:: As Tolerated DS: Diagnosis Discharge Diagnosis (1) Urothelial carcinoma of bladder: Status: Acute
--- NOTE | 2020-08-25 08:12 | ROE_ITS ---
Date of service: 08/25/20 Time of Service: 08:13 Operative Note Operative Note DATE OF PROCEDURE: 08/25/20 PRE-OP DIAGNOSIS: Bladder cancer POST-OP DIAGNOSIS: same PROCEDURE: cystoscopy, bladder biopsy with fulguration, instillation of Mitomycin C into bladder SURGEON: Pan Hazel ANESTHESIA TYPE: General:No Airway Refer to Anesthesia Record ESTIMATED BLOOD LOSS: 25 PATHOLOGY: other (bladder biopsies) COMPLICATIONS: None Patient was transported to: same day Patient's condition: stable Implants: 16 Ecuadorean edwards with 10 cc in catheter balloon Indications: This is a 74-year-old woman who was previously identified as having high-grade, noninvasive urothelial cell carcinoma of the bladder. She was treated with transurethral resection followed by an induction series of intravesical gemcitabine (BCG was not available). On surveillance cystoscopy, there were some mucosal abnormalities around her previous scar. She presents now for biopsy and fulguration of these areas. Findings: Erythematous mucosa on left bladder wall adjacent to previous surgical scar and left ureteral orifice Procedure Description: The patient was brought to the operating room on 08/25/2020. She was given a dose of preoperative IV antibiotics. After successful induction of general anesthesia without intubation, she was placed in the dorsal lithotomy position. Her genitalia was prepped and draped. 2% Xylocaine jelly was instilled into the urethra to act as a local anesthetic. A 22 Ecuadorean rigid cystoscope was passed through the urethra into the bladder. The bladder was inspected using both a 30 and a 70 degree lens. The right side of the bladder appeared normal with no papillary or nodular lesions. On the left side of the bladder, lateral and posterior to the left ureteral orifice, a surgical scar was visualized. On the posterior aspect of that scar there was some increased vascularity to the mucosa. The mucosa appeared a bit pebbley but was not papillary or nodular. Similar mucosa was visualized anterior to the ureteral orifice up toward the bladder neck. I then used a cold cup biopsy forceps to take multiple biopsies of the erythematous sites. I used bipolar cautery with a Bugbee electrode to cauterize the biopsy site and any additional erythematous mucosa. At the completion of the procedure, the left ureteral orifice appeared intact. No active bleeding was seen. The cystoscope was removed and a 18 Ecuadorean Edwards catheter was passed through the urethra into the bladder. The catheter balloon was inflated with 10 cc of sterile water. 40 mg of mitomycin-C mixed in 40 mL of dilute was instilled into the bladder. The catheter was clamped to allow the medication to stay within the bladder. The patient was then taken back to the day surgery unit in stable condition. The bladder will be drained in 1 to 2 hours and the catheter will be removed She tolerated this procedure well with no complications.
[2020-08-25] MEDS: Phenazopyridine 200 MG TAB PO (08:49)
[2020-08-25 08:50] VITALS: BP 125/76; PULSE 75; RESP 17; TEMP 36.4; O2SAT 93
== END 2020-08-25 09:44 | disposition home or self-care (01) ==
PROVIDERS: PCP Family Medicine; Visit Provider Urology
PROC: 0TBB8ZX Excision of Bladder, Via Natural or Artificial Opening Endoscopic, Diagnostic (ICD-10-PCS; CPT 52204; principal; 2020-08-25 07:30)
DX: C67.9 Malignant neoplasm of bladder, unspecified (principal)
CPT/HCPCS: 51720; 52204; 88305; NC; J0131; J0690; J1100; J1200; J1885; J2001; J2405; J9280

== ENCOUNTER → 2020-09-09 14:56 | Outpatient (BNVA) | payer MEDICARE, SELFPAY | PROVIDERS: PCP Family Medicine; Referring Provider Family Medicine; Visit Provider Urology | DX: C67.9 Malignant neoplasm of bladder, unspecified (principal); Z98.890 Other specified postprocedural states | CPT/HCPCS: 99213 ==

== ENCOUNTER → 2020-12-12 12:54 | Outpatient (BNVA) | payer MEDICARE, SELFPAY | PROVIDERS: PCP Family Medicine; Referring Provider Family Medicine; Visit Provider Urology | DX: C67.9 Malignant neoplasm of bladder, unspecified (principal) | CPT/HCPCS: 52000; 81003; 99213 ==

== ENCOUNTER → 2021-03-13 12:57 | Outpatient (BNVA) | payer MEDICARE, SELFPAY | PROVIDERS: PCP Family Medicine; Referring Provider Family Medicine; Visit Provider Urology | DX: C67.9 Malignant neoplasm of bladder, unspecified (principal) | CPT/HCPCS: 52000; 81003 ==

== ENCOUNTER 2021-04-13 02:33 | Outpatient (CLI) | payer MEDICARE, SELFPAY ==
[2021-04-13 12:56] LABS: CREATININE 0.8 mg/dL (0.55-1.02); Calculated LDL 112 mg/dL (<100); Cholesterol 198 mg/dL (<200); HDL Cholesterol 74 mg/dL (40-60); Potassium 3.7 mmol/L (3.5-5.1); Triglyceride 62 mg/dL (<150)
== END 2021-04-13 02:34 | disposition home or self-care (01) ==
LOC: LBO 02:33
PROVIDERS: PCP Family Medicine; Visit Provider Family Medicine
DX: E78.5 Hyperlipidemia, unspecified (principal); I10 Essential (primary) hypertension; R73.9 Hyperglycemia, unspecified
CPT/HCPCS: 36415; 80061; 82565; 83036; 84132

== ENCOUNTER → 2021-05-29 13:01 | Outpatient (BNVA) | payer MEDICARE, SELFPAY | PROVIDERS: PCP Family Medicine; Referring Provider Family Medicine; Visit Provider Urology | DX: C67.9 Malignant neoplasm of bladder, unspecified (principal); N32.89 Other specified disorders of bladder | CPT/HCPCS: 52000; 81003 ==

== ENCOUNTER → 2021-12-08 12:51 | Outpatient (BNVA) | payer MEDICARE, SELFPAY | PROVIDERS: PCP Family Medicine; Referring Provider Family Medicine; Visit Provider Urology | DX: C67.9 Malignant neoplasm of bladder, unspecified (principal) | CPT/HCPCS: 52000; 81003 ==

== ENCOUNTER 2021-12-08 18:22 | Outpatient (REF) | payer MEDICARE, SELFPAY | END 2021-12-08 18:23 | disposition home or self-care (01) | LOC: LBN 18:22 | PROVIDERS: PCP Family Medicine; Visit Provider Urology | DX: N76.2 Acute vulvitis (principal); C67.9 Malignant neoplasm of bladder, unspecified | CPT/HCPCS: 87086 ==

== ENCOUNTER 2022-04-21 04:03 | Outpatient (CLI) | payer MEDICARE, SELFPAY ==
[2022-04-21 09:25] LABS: Hemoglobin A1C 5.7 % (<5.7)
[2022-04-21 10:11] LABS: CREATININE 0.7 mg/dL (0.55-1.02); Calculated LDL 139 mg/dL (<100); Cholesterol 218 mg/dL (<200); Estimated GFR 90.14 (mL/min/1.73m2); HDL Cholesterol 70 mg/dL (40-60); Potassium 3.6 mmol/L (3.5-5.1); Triglyceride 47 mg/dL (<150)
== END 2022-04-21 04:04 | disposition home or self-care (01) ==
PROVIDERS: PCP Family Medicine; Visit Provider Family Medicine
DX: I10 Essential (primary) hypertension (principal); E78.5 Hyperlipidemia, unspecified; R73.9 Hyperglycemia, unspecified
CPT/HCPCS: 36415; 80061; 82565; 83036; 84132

== ENCOUNTER → 2022-12-07 12:57 | Outpatient (BNVA) | payer MEDICARE, SELFPAY | PROVIDERS: PCP Family Medicine; Visit Provider Urology | DX: Z08 Encounter for follow-up examination after completed treatment for malignant neoplasm (principal); Z85.51 Personal history of malignant neoplasm of bladder | CPT/HCPCS: 52000; 81003 ==

== ENCOUNTER 2022-12-16 04:08 | Outpatient (CLI) | payer MEDICARE, SELFPAY ==
[2022-12-16 09:58] LABS: Abs Immature Grans 0.05 10^3/uL (0.0-0.06); Absolute Basophil Count 0.05 10^3/uL (0.0-0.2); Absolute Eosinophil Count 0.18 10^3/uL (0.0-0.7); Absolute Lymphocyte Count 2.28 10^3/uL (1.2-3.4); Absolute Monocyte Count 0.58 10^3/uL (0.1-0.8); Absolute Neutrophil Count 3.75 10^3/uL (1.2-6.7); Basophils % 0.7; Eosinophils % 2.6; HCT 43.4 % (36.0-46.0); HGB 14.1 g/dL (11.2-15.7); Immature Grans % 0.7; Lymphocytes % 33.1; MCH 30.3 pg (27.0-33.0); MCHC 32.5 % (32.0-36.0); MCV 93 fL (80-95); MPV 12.1 fL (8.0-11.0); Monocytes % 8.4; Neutrophils % 54.5; Platelet Count 203 10^3/uL (130-400); RBC 4.66 10^6/uL (3.93-5.22); RDW 13.2 % (11.7-14.6); RDW-SD 44.8 fL; WBC 6.89 10^3/uL (4.4-10.8)
[2022-12-16 10:20] LABS: Anion Gap 7.1 mmol/L (3-11); BUN 23 mg/dL (7-18); CO2 29.9 mmol/L (21.0-32.0); Calculated LDL 109 mg/dL (<100); Chloride 105 mmol/L (98-107); Cholesterol 191 mg/dL (<200); Estimated GFR 58.39 (mL/min/1.73m2); Glucose 108 mg/dL (74-106); HDL Cholesterol 74 mg/dL (40-60); Potassium 3.6 mmol/L (3.5-5.1); Sodium 142 mmol/L (136-145); Triglyceride 40 mg/dL (<150)
== END 2022-12-16 04:09 | disposition home or self-care (01) ==
PROVIDERS: PCP Family Medicine; Visit Provider Family Medicine
DX: D64.9 Anemia, unspecified (principal); E87.1 Hypo-osmolality and hyponatremia; E78.5 Hyperlipidemia, unspecified
CPT/HCPCS: 36415; 80048; 80061; 85025

== ENCOUNTER → 2022-12-31 10:57 | Outpatient (BNVA) | payer MEDICARE, SELFPAY | PROVIDERS: PCP Family Medicine; Referring Provider Family Medicine; Visit Provider Physical Therapy Assistant | DX: L72.3 Sebaceous cyst (principal) | CPT/HCPCS: 11402; 99213 ==

== ENCOUNTER → 2023-12-06 12:55 | Outpatient (BNVA) | payer MEDICARE, SELFPAY | PROVIDERS: PCP Family Medicine; Visit Provider Urology | DX: C67.9 Malignant neoplasm of bladder, unspecified (principal) | CPT/HCPCS: 52000; 81003 ==

== ENCOUNTER 2024-01-03 03:06 | Outpatient (CLI) | payer MEDICARE, SELFPAY ==
[2024-01-03 09:30] LABS: Hemoglobin A1C 5.8 % (<5.7)
[2024-01-03 09:32] LABS: HCT 41.8 % (36.0-46.0); HGB 13.4 g/dL (11.2-15.7); MCH 29.5 pg (27.0-33.0); MCHC 32.1 % (32.0-36.0); MCV 92 fL (80-95); Platelet Count 198 10^3/uL (130-400); RBC 4.54 10^6/uL (3.93-5.22); RDW 13.3 % (11.7-14.6); RDW-SD 45.1 fL
[2024-01-03 10:20] LABS: ALT 22 U/L (14-59); AST 14 U/L (15-37); Albumin 3.4 g/dL (3.4-5.0); Alkaline Phosphatase 102 U/L (46-116); Anion Gap 7.9 mmol/L (3-11); BUN 20 mg/dL (7-18); Bilirubin, Total 0.47 mg/dL (0.2-1.0); CO2 31.1 mmol/L (21.0-32.0); CREATININE 0.9 mg/dL (0.55-1.02); Calcium 9.2 mg/dL (8.5-10.1); Calculated LDL 67 mg/dL (<100); Chloride 102 mmol/L (98-107); Cholesterol 126 mg/dL (<200); Estimated GFR 65.84 (mL/min/1.73m2); Glucose 98 mg/dL (74-106); HDL Cholesterol 49 mg/dL (40-60); Potassium 3.3 mmol/L (3.5-5.1); Sodium 141 mmol/L (136-145); Total Protein 7.4 g/dL (6.4-8.2); Triglyceride 51 mg/dL (<150)
[2024-01-03 20:21] LABS: Hepatitis C Ab w Rflx HCV PCR Negative (Negative)
[2024-01-03 20:24] LABS: HBs Antibody, Quant <3.1 mIU/mL (See Note); Hep B Surface Ab Negative (See Note); Hepatitis B Core Antibody Negative (Negative); Hepatitis B Surface Antigen Negative (Negative)
[2024-01-03 20:31] LABS: HIV-1/2 Ag & Ab Screen Negative (Negative)
== END 2024-01-03 03:07 | disposition home or self-care (01) ==
LOC: LBO 03:06
PROVIDERS: PCP Family Medicine; Visit Provider Family Medicine
DX: E11.51 Type 2 diabetes mellitus with diabetic peripheral angiopathy without gangrene (principal); I70.209 Unspecified atherosclerosis of native arteries of extremities, unspecified extremity; E78.5 Hyperlipidemia, unspecified; Z11.59 Encounter for screening for other viral diseases; R10.9 Unspecified abdominal pain; R53.83 Other fatigue; Z00.00 Encounter for general adult medical examination without abnormal findings
CPT/HCPCS: 36415; 80053; 80061; 85027; 86704; 86706; 86803; 87340; 87389; 83036

== ENCOUNTER 2024-01-09 02:28 | Outpatient (CLI) | payer MEDICARE, SELFPAY ==
[2024-01-09] MEDS: Levalbuterol HFA 15 GM INH 4 PUFF IH (14:15)
[2024-01-09] MEDS: Inhaler, Assist Device 1 EACH MC (14:16)
--- NOTE | 2024-01-11 09:34 | W.PFT ---
Date of service: 01/09/24 Time of Service: 13:00 Pulmonary Function Test Result Requesting Provider Wood Yuen Indications: ESTEVEZ Interpretation Spirometry: Normal Lung Volumes: Normal Diffusion Capacity: Normal Impression Normal spirometry normal lung volumes and normal diffusion. Normal flow-volume loop. Clinical Correlation therefore is recommended.
== END 2024-01-09 02:29 | disposition home or self-care (01) ==
LOC: RT 02:29
PROVIDERS: PCP Family Medicine; Visit Provider Family Medicine
DX: R06.09 Other forms of dyspnea (principal)
CPT/HCPCS: 00123; 94060; 94726; 94729

== ENCOUNTER → 2024-01-12 00:47 | Outpatient (CLI) | payer MEDICARE, SELFPAY ==
--- NOTE | 2024-01-12 07:45 | DI.NM_ITS ---
APPROVED REPORT Exam: Pharmacologic Patient Location: Out-Patient Room/Bed: Stress Nurse: Paola Palacio RN Ordering Provider:DICKSON ARIAS, Contact Number: [phone] BMI: 33.72 Baseline Rhythm: Sinus Rhythm Comment: Occasional PAC's Indications: ESTEVEZ, chest pain Medical History Medical History: ESTEVEZ, lymphedema, HLD, HTN, anxiety, depression, overweight Cardiac Medications: Losartan, atorvastatin, hydrochlorothiazide, semaglutide Allergies: Lisinopril Cardiac Risk Factors: HTN, HLD, former smoker Previous Cardiac Procedures: None Pretest Chest Pain Characteristics: None Exercise History: Physically active Physical Disabilities: Left leg Lung Sounds: Clear to auscultation Heart Sounds: Regular Stress Test Details Test: Pharmacologic stress was paired with low level exercise. Reason for pharmacologic stress test: physical limitation. Nuclear Acquisition: Rest Tc-99m/Stress Tc-99m 1 day Rest Isotope: Tc-99m Sestamibi. Dose: 10.0 Date: 01/12/2024 Injection Time: 1100 Stress Isotope: Tc-99m Sestamibi. Dose: 30.0 Date: 01/12/2024 Injection Time: 1334 HR Resting HR Supine: 67 bpm Max Heart Rate (APMHR): 143.143580 bpm Resting HR Standin bpm Target HR (85% APMHR): 121.629199 bpm Max HR Achieved: 124 bpm % of APMHR: 86.71 Recovery HR: 85 bpm HR response to stress: Normal HR response to stress BP Resting BP Supine: 130/82 mmHg Resting BP Standin/80 mmHg Max BP: 148/86 mmHg Recovery BP: 144/70 mmHg BP response to stress: Normal blood pressure response to stress. ECG Resting ECG: Sinus Rhythm Ectopy: Occasional PAC's Stress ECG: Sinus Tachycardia ST Change: No significant ST segment changes noted Arrhythmia: Occasional PAC's Recovery ECG: Sinus Rhythm Recovery ST Change: No significant ST segment changes noted Recovery Arrhythmia: Occasional PAC's Clinical Stress Symptoms: Mild SOB Angina Score: None Rate Pressure Product: [id number] Stress ECG Conclusion 1. Resting electrocardiogram showed poor R wave progression, minor ST abnormalities 2. Patient underwent testing using pharmacologic stress with regadenoson 3. Peak heart rate achieved was 87% of maximal predicted for age 4. There was no electrocardiographic evidence of myocardial ischemia 5. See MPI report Bear Treadmill Score is which is Low risk. MPI Conclusion Myocardial perfusion is normal. There is no ischemia or evidence of prior infarction Ejection fraction is 60% with normal wall motion Radiologist Interpretation Radiologist Interpretation by: Kel Moore MD Interpretation Date/Time: 01/12/2024 16:45:50
[2024-01-12] MEDS: Regadenoson 0.4 MG/5 ML SYR IVP (13:23)
== END ==
PROVIDERS: PCP Family Medicine; Visit Provider Family Medicine
DX: R07.9 Chest pain, unspecified (principal)
CPT/HCPCS: 78452; 93016; 93018; 93017; J2785

== ENCOUNTER → 2024-02-02 12:57 | Outpatient (BNVA) | payer MEDICARE, SELFPAY | PROVIDERS: PCP Family Medicine; Referring Provider Family Medicine; Visit Provider Surgery | DX: L72.3 Sebaceous cyst (principal); L57.0 Actinic keratosis; T81.89XD Other complications of procedures, not elsewhere classified, subsequent encounter | CPT/HCPCS: 99214 ==

== ENCOUNTER → 2024-03-05 11:02 | Outpatient (BNVA) | payer MEDICARE, SELFPAY | PROVIDERS: PCP Family Medicine; Referring Provider Family Medicine; Visit Provider Surgery | DX: L72.3 Sebaceous cyst (principal); L70.0 Acne vulgaris | CPT/HCPCS: 99212 ==

== ENCOUNTER 2024-11-29 11:12 | Emergency (ER) | payer MEDICARE, SELFPAY ==
[2024-11-29 11:15] VITALS: BP 134/67; PULSE 80; RESP 18; TEMP 36.9; O2SAT 97
[2024-11-29 11:22] VITALS: BP 134/67; PULSE 80; RESP 18; TEMP 36.9; O2SAT 97
--- NOTE | 2024-11-29 11:30 | DI.RAD_ITS ---
Exam(s) XR CHEST 2V PA LATERAL EXAM: XR CHEST 2V PA LATERAL CLINICAL HISTORY: cough. TECHNIQUE: 2D digital imaging was performed. COMPARISON: No prior chest x-rays for comparison. FINDINGS: 2 views: Heart size is normal. The mediastinum is not widened. Lungs are clear. No infiltrates nor pleural effusions. IMPRESSION: No acute pulmonary findings. DATA REPOSITORY: RADIATION DOSE DELIVERED:
--- NOTE | 2024-11-29 11:45 | W.ED.GENAD ---
Discharge Plan Disposition Patient Disposition: Home Condition: Stable Discharge Details Clinical Impression: Respiratory infection Primary Care Provider: Wood Yuen ED Provider: Nate Boothe Home Meds and New Rx's Prescriptions: New prednisone 20 mg tablet 60 mg PO DAILY 4 Days Qty: 12 0RF doxycycline hyclate 100 mg tablet 100 mg PO BID Qty: 14 0RF Continued miscellaneous medical supply Misc See Rx Instructions miscellaneous .COMPLEX Qty: 3 4RF Rx Instructions: dispense 2 breast forms and 3 bras; cyanocobalamin (vitamin B-12) 1,000 mcg capsule 1,000 mcg PO DAILY estradiol 0.01 % (0.1 mg/gram) cream 0.5 appful vaginal .COMPLEX Qty: 42.5 5RF Rx Instructions: 0.5 appful vaginally twice weekly cholecalciferol (vitamin D3) 25 mcg (1,000 unit) tablet 5,000 unit PO DAILY Qty: 90 Patient Comments: will stop on 04/29/17 DCW atorvastatin 20 mg tablet 20 mg PO DAILY Qty: 90 3RF losartan 50 mg tablet 50 mg PO DAILY Qty: 90 3RF terbinafine HCl 250 mg tablet 250 mg PO DAILY Qty: 30 0RF Rx Instructions: after 4 months of starter dose, take daily for one week every 3 months Chlorahexide Mouth Rinse 10 ml PO DAILY No Action Probiotic with Prebiotic 1 billion-250 cell-mg capsule PO clotrimazole-betamethasone 1-0.05 % cream 1 applic topical .COMPLEX Qty: 15 1RF Rx Instructions: tiny amount rubbed into vulva twice weekly. Just once a day. terbinafine HCl 250 mg tablet 250 mg PO DAILY Qty: 28 0RF Rx Instructions: take daily for one week for each of next 4 months, then start maintenance therapy Discharge Instructions Additional Instructions: Your x-ray and viral swab are negative. Follow-up with your primary care provider if not improving within a week. You can take 2 puffs every 4 hours as needed. If you feel significantly more ill or have severe shortness of breath return to the emergency department for reevaluation HPI General Mode of arrival: ambulatory. Date/Time Provider Initiated Documentation: 11/29/24 11:14. Limitations to Documentation: no limitations. Information obtained by: patient. History of Present Illness 79 year old F presents to the emergency department with the chief complaint of cough, described as moderate, Patient reports no radiation. Patient started experiencing this day(s) (3) and it has been constant. No relieving factors improve symptom(s), No exacerbating factors reported . Patient notes cough; denies chest pain, fever/chills and shortness of breath. Patient did receive the following treatments prior to arrival, none Related Data Home Medications ?Medication ?Instructions ?Recorded ?Confirmed Chlorahexide Mouth Rinse 10 ml PO DAILY 05/04/17 04/05/24 cholecalciferol (vitamin D3) 25 5,000 unit PO DAILY #90 tabs 01/18/20 11/29/24 mcg (1,000 unit) tablet miscellaneous medical supply See Rx Instructions miscellaneous 12/08/22 11/29/24 .COMPLEX #3 ea Bacillus coagulans-inulin 1 cap PO 11/04/23 04/05/24 billion cell-250 mg capsule (Probiotic with Prebiotic) Held on 11/29/24. Instructions: Pt Stopped/Never Started cyanocobalamin (vitamin B-12) 1,000 mcg PO DAILY 11/04/23 11/29/24 1,000 mcg capsule estradiol 0.01% (0.1 mg/gram) 0.5 appful vaginal .COMPLEX #42.5 12/16/23 11/29/24 vaginal cream grams atorvastatin 20 mg tablet 20 mg PO DAILY #90 tabs 01/09/24 11/29/24 clotrimazole-betamethasone 1 1 applic topical .COMPLEX #15 grams 02/16/24 11/29/24 %-0.05 % topical cream Held on 11/29/24. Instructions: Pt Stopped/Never Started losartan 50 mg tablet 50 mg PO DAILY #90 tabs 09/04/24 11/29/24 terbinafine HCl 250 mg tablet 250 mg PO DAILY #28 tabs 09/04/24 11/29/24 Held on 11/29/24. Instructions: Pt Stopped/Never Started terbinafine HCl 250 mg tablet 250 mg PO DAILY #30 tabs 09/04/24 doxycycline hyclate 100 mg tablet 100 mg PO BID #14 tabs 11/29/24 prednisone 20 mg tablet 60 mg (3 x 20 mg) PO DAILY 4 days 11/29/24 #12 tabs Previous Rx's ?Medication ?Instructions ?Recorded miscellaneous medical supply See Rx Instructions miscellaneous 12/08/22 .COMPLEX #3 ea estradiol 0.01% (0.1 mg/gram) 0.5 appful vaginal .COMPLEX #42.5 12/16/23 vaginal cream grams atorvastatin 20 mg tablet 20 mg PO DAILY #90 tabs 01/09/24 clotrimazole-betamethasone 1 1 applic topical .COMPLEX #15 grams 02/16/24 %-0.05 % topical cream Held on 11/29/24. Instructions: Pt Stopped/Never Started losartan 50 mg tablet 50 mg PO DAILY #90 tabs 09/04/24 terbinafine HCl 250 mg tablet 250 mg PO DAILY #28 tabs 09/04/24 Held on 11/29/24. Instructions: Pt Stopped/Never Started terbinafine HCl 250 mg tablet 250 mg PO DAILY #30 tabs 09/04/24 doxycycline hyclate 100 mg tablet 100 mg PO BID #14 tabs 11/29/24 prednisone 20 mg tablet 60 mg (3 x 20 mg) PO DAILY 4 days 11/29/24 #12 tabs Allergies Allergy/AdvReac Type Severity Reaction Status Date / Time lisinopril AdvReac COUGH Verified 11/29/24 11:19 General Stated Complaint: RespSymp GUILLERMO: 4 Review of Systems All systems reviewed & are unremarkable except as noted in HPI and below Constitutional Constitutional: Denies chills, Denies fever(s) and Denies weakness Cardiovascular Cardiovascular: Denies chest pain and Denies dyspnea Respiratory Respiratory: Reports cough and Denies dyspnea Gastrointestinal Gastrointestinal: Denies abdominal pain, Denies nausea and Denies vomiting Neurologic Neurologic: Denies weakness Exam Const General: no acute distress Orientation: alert [facility] Head: normal to inspection Ears: external ears normal General nose exam: external nose normal Mouth: moist mucous membranes Eyes General: appearance normal, both eyes and all related structures Neck Neck: normal visual inspection Resp Effort & Inspection: normal respiratory effort and able to speak in complete sentences Auscultation: wheezes Cardio Jugular venous pressure: no JVD Rate: regular rate Skin General skin exam: no rashes or lesions noted Neuro General: patient alert and patient oriented x3 Extrem General: normal to inspection Psych Mental Status: mental status grossly normal Course Vital Signs Vital signs: Vital Signs Temperature 36.9 C 11/29/24 11:15 Pulse 80 11/29/24 11:15 Respiratory Rate 18 11/29/24 11:15 Blood Pressure 134/67 11/29/24 11:15 Pulse Oximetry 97 11/29/24 11:15 Temperature 36.9 C 11/29/24 11:22 Temperature Source Oral 11/29/24 11:22 Pulse 80 11/29/24 11:22 Respiratory Rate 18 11/29/24 11:22 Respiratory Effort Normal, Non-Labored 11/29/24 11:26 Respiratory Depth Normal 11/29/24 11:26 Blood Pressure 134/67 11/29/24 11:22 Blood Pressure Position Sitting 11/29/24 11:22 Pulse Oximetry 97 11/29/24 11:22 Oxygen Delivery Method Room Air 11/29/24 11:22 Oxygen Flow Rate 0 11/29/24 11:22 Pain Level 0 11/29/24 11:22 Medical Decision Making 79-year-old female with a history of hypertension, hyperlipidemia, who comes in with several days of cough. Her significant other has similar symptoms. No fevers or chills, no recent travel, no difficulty breathing or chest pain/pressure. She speaking full sentences in no distress on exam and appears well. She has apical wheezing bilaterally otherwise clear lung sounds, no JVD, no calf tenderness. Given well appearance and no fevers I doubt sepsis do not feel blood work is indicated. I will treat her symptoms with prednisone and albuterol inhaler and check a Fluvid and x-ray and reassess. X-ray negative, Fluvid negative. Patient is stable. I am going to initiate antibiotics with doxycycline given productive cough. She is stable for discharge and will follow-up with her PCP if not improving, return precautions given Differential Diagnosis Differential Diagnosis: URI, pneumonia PFSH All Active Problems (Updated 11/29/24 @ 12:47 by Nate Boothe MD) Respiratory infection (Acute) Open comedone (Acute) Suture granuloma (Acute) Actinic keratosis (Acute) ESTEVEZ (dyspnea on exertion) (Acute) Sebaceous cyst (Acute) Vulvitis (Acute) Lymphedema (Acute) Vaginal atrophy (Acute) Dx 2010. felt to be etiology of vaginal bleeding. 2019. Vaginal E2 with improvement in bleeding 2021. Stop vaginal E2. 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 in endocervical canal. ES 1mm. incidental finding on pelvis u/s 06/09/20 . Unable to perform EMBx. Stenotic os. Bladder mass Excessive drinking alcohol we discussed cancer risk increase (GI and breast) cardiovascular benefit from ETOH for women is 1 oz/day Overweight Hypertension Breast cancer Hyperlipidemia Depression Sebaceous cyst Right labia minora-not problematic Post-menopausal bleeding 2010. onset. u/s 3mm ES. Uterus [id number]. EMBx: atrophic endometrium. 2011. continued daily bleeding. Hysteroscopy, D&C. Inactive endometrium. 2013. continued daily dark/brown blood. 2014. u/s ES 3mm. 2015. No w/u. 11/2016. contact bleeding at ext os. Surgical History Abnormal vaginal bleeding (05/10/17) Multiple U/S of ES and several EMBX. 05/04/2017 Hysteroscopy and D&C. Benign findings. 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 Daughter No problems noted. Brother No problems noted. Brother No problems noted. Brother No problems noted. Social History Smoking/Tobacco Use Status: Former Tobacco Use tobacco type: cigarettes Quit Date: 06/20/95 Tobacco: How many years used: 25 Second Hand Exposure: Yes Smoking risk assessment performed?: Yes Alcohol Intake: current Alcohol Intake frequency: a few times a month Alcohol type: hard liquor Drug use: Never Substance use type: does not use Counseling given: No Caregiver/Support person: No Household members: spouse Housing: house Number of Children: 2 Communication Needs: None Do you need help understanding health information?: Never Pets and animals: No Sexually active: No Do you think of yourself as: straight/heterosexual Current gender identity: female What is your relationship status?: How often do you talk on the phone with friends or family?: twice per week How often do you get together with friends or relatives?: once per week How often do you attend tenriism or synagogue services?: decline to answer Do you belong to any clubs or organized social groups?: no Panel score (0-1 are the most socially isolated patients): 2 What type of physical activity do you participate in: none Emi/Zoroastrianism: Shinto Seatbelt use: always Drive intox or ride w/intox dumpster driver: No Do you feel safe at home: Yes Do you feel safe in your relationship?: Yes Female Reproductive History Menstrual Menopause type: natural History History 2 Para Hx # Term Pregnancies 2 Multiple births Hx # Pregnancies Ectopic pregnancies AB induced Hx Number of Living Children AB spontaneous
[2024-11-29] MEDS: predniSONE 20 MG TAB 60 MG PO (11:47)
[2024-11-29] MEDS: Albuterol HFA 8 GM 60 PUFF INH IH (11:47)
[2024-11-29 12:20] LABS: COVID-19 PCR Negative (Negative); Influenza A PCR Negative (Negative); Influenza B PCR Negative (Negative); RSV PCR Negative (Negative)
[2024-11-29 12:26] LABS: Source Nasopharynx
[2024-11-29 12:36] VITALS: BP 128/55; PULSE 66; RESP 18; O2SAT 97
== END 2024-11-29 12:57 | disposition home or self-care (01) ==
PROVIDERS: Emergency Provider Emergency Medicine; PCP Family Medicine
DX: J06.9 Acute upper respiratory infection, unspecified (principal); R06.02 Shortness of breath; R05.9 Cough, unspecified; R06.2 Wheezing; I10 Essential (primary) hypertension; E78.5 Hyperlipidemia, unspecified
CPT/HCPCS: 87637; 99283; 71046; 99284; J7512

== ENCOUNTER → 2024-12-04 12:55 | Outpatient (BNVA) | payer MEDICARE, SELFPAY | PROVIDERS: PCP Family Medicine; Visit Provider Urology | DX: C67.9 Malignant neoplasm of bladder, unspecified (principal); N39.41 Urge incontinence | CPT/HCPCS: 99213; 81002; 52000 ==

== ENCOUNTER 2025-01-02 01:59 | Outpatient (CLI) | payer MEDICARE, SELFPAY ==
--- NOTE | 2025-01-02 07:45 | DI.DEXA_ITS ---
Exam(s) XR DEXA BONE DENSITY W/WO JAK EXAM: XR DEXA BONE DENSITY W/WO JAK CLINICAL HISTORY: postmenopausal status,z78.0 TECHNIQUE: Routine DEXA evaluation of the lumbar spine, hip, or forearm. COMPARISON: No exams were available for comparison FINDINGS: Performed on a Hologic unit. Lateral image: No compression fracture evident. Lumbar Spine total T-score: -0.2 which is in normal range. Hip total T-score:-0.5 which is in normal range Independent reading at the level of the femoral neck yields T-score of -0.5 which is in normal range Forearm total T-score: -0.8 which is in normal range IMPRESSION: Bone mineral density measures in the normal range. Fracture risk is low. Note: Any spine fracture indicates 5x risk for subsequent spine fracture and 2x risk for subsequent hip fracture. World Health Organization criteria for BMD interpretation classify patients: Normal...... T- Score at or above -1.0 Osteopenic... T- Score between -1.0 and -2.5 Osteoporosis... T-Score at or below -2.5
== END 2025-01-02 02:19 ==
LOC: DI 01:59
PROVIDERS: PCP Family Medicine; Visit Provider Family Medicine
DX: Z13.820 Encounter for screening for osteoporosis (principal); Z78.0 Asymptomatic menopausal state
CPT/HCPCS: 77080

== ENCOUNTER 2025-01-08 03:10 | Outpatient (CLI) | payer MEDICARE, SELFPAY ==
[2025-01-08 07:55] LABS: HCT 41.2 % (36.0-46.0); HGB 12.7 g/dL (11.2-15.7); MCH 28.4 pg (27.0-33.0); MCHC 30.8 % (32.0-36.0); MCV 92 fL (80-95); MPV 12.1 fL (8.0-11.0); Platelet Count 186 10^3/uL (130-400); RBC 4.47 10^6/uL (3.93-5.22); RDW 14.3 % (11.7-14.6); RDW-SD 48.3 fL; WBC 7.14 10^3/uL (4.4-10.8)
[2025-01-08 08:10] LABS: Hemoglobin A1C 5.4 % (<5.7)
[2025-01-08 08:36] LABS: ALT 24 U/L (14-59); AST 14 U/L (15-37); Albumin 3.6 g/dL (3.4-5.0); Alkaline Phosphatase 99 U/L (46-116); Anion Gap 5.8 mmol/L (3-11); BUN 14 mg/dL (7-18); Bilirubin, Total 0.6 mg/dL (0.2-1.0); CO2 30.2 mmol/L (21.0-32.0); Calcium 9.3 mg/dL (8.5-10.1); Chloride 107 mmol/L (98-107); Estimated GFR 88.47 (mL/min/1.73m2); Glucose 92 mg/dL (74-106); Potassium 4.0 mmol/L (3.5-5.1); Sodium 143 mmol/L (136-145); Total Protein 7.4 g/dL (6.4-8.2); Vitamin B12 597 pg/mL (193-986)
== END 2025-01-08 03:11 | disposition home or self-care (01) ==
LOC: LBO 03:10
PROVIDERS: PCP Family Medicine; Visit Provider Family Medicine
DX: R10.9 Unspecified abdominal pain (principal); G62.9 Polyneuropathy, unspecified; R53.83 Other fatigue; R73.9 Hyperglycemia, unspecified
CPT/HCPCS: 36415; 80053; 85027; 82607; 83036

== ENCOUNTER 2025-03-04 01:48 | Outpatient (CLI) | payer MEDICARE, SELFPAY ==
[2025-03-04 15:27] LABS: Iron 46 ug/dL (50-170); Total Iron Binding Capacity 294 ug/dL (250-450); Transferrin Sat 16 % (15-50)
[2025-03-04 15:28] LABS: Calculated LDL 64 mg/dL (<100); Cholesterol 135 mg/dL (<200); Ferritin 246 ng/mL (8-252); HDL Cholesterol 60 mg/dL (>or=50); TSH (W/Ref FT4) 2.96 uIU/mL (0.36-3.74); Triglyceride 58 mg/dL (<150)
== END 2025-03-04 01:49 | disposition home or self-care (01) ==
PROVIDERS: PCP Nurse Practitioner Family; Visit Provider Nurse Practitioner Family
DX: E78.5 Hyperlipidemia, unspecified (principal); R53.83 Other fatigue; Z86.39 Personal history of other endocrine, nutritional and metabolic disease
CPT/HCPCS: 36415; 80061; 82728; 83540; 83550; 84443

== ENCOUNTER 2025-03-07 09:06 | Outpatient (CLI) | payer MEDICARE, SELFPAY ==
--- NOTE | 2025-03-07 09:30 | DI.US_ITS ---
APPROVED REPORT EXAM: Comprehensive 2D, Doppler, and color-flow Echocardiogram Patient Location: Out-Patient Freelance Copywriter: Roni Castillo RDCS (AE) Indications: Fatigue, activity intolerance, murmur Other Information Study Quality: Adequate Conclusion Normal left ventricular wall thickness and chamber size. Ejection fraction is 55%. Wall motion is normal Normal right ventricular size and function Both atria are normal in size Aortic valve is trileaflet and mildly sclerotic without stenosis or regurgitation Normal mitral valve with mild regurgitation Estimated right ventricular systolic pressure is 25 mmHg Ascending aorta measures 3.58 cm Wall motion Left Ventricle The left ventricle is normal size. Left ventricular systolic function is normal. The left ventricular ejection fraction is within the normal range. There is normal left ventricular wall thickness. There is normal LV segmental wall motion. The left ventricular diastolic function is normal. There is no v entricular septal defect visualized. LVEF is 55%. Right Ventricle The right ventricle is normal size. The right ventricular systolic function is normal. Atria The left atrium size is normal. The right atrium size is normal. The interatrial septum is intact with no evidence for an atrial septal defect. Aortic Valve The aortic valve is mildly sclerotic. Aortic valve is trileaflet. There is no aortic valvular stenosis. No aortic regurgitation is present. Mitral Valve The mitral valve is normal in structure. No evidence of mitral valve stenosis. Mild mitral regurgitation. Tricuspid Valve The tricuspid valve is normal in structure. There is no tricuspid valve stenosis. Trace tricuspid regurgitation. The RVSP is 24.9 mmHg. Pulmonic Valve The pulmonary valve is normal in structure. There is no pulmonic valvular stenosis. There is no pulmonic valvular regurgitation. Great Vessels The aortic root is normal in size. The ascending aorta is mildly dilated. Aortic arch is normal in caliber. IVC is normal in size and collapses >50% with inspiration. Pericardium There is no pericardial effusion. 2D Dimensions IVSD d PLAX 0.78 cm F: 0.6-1.0 Ao Root d 2.63 cm F: 2.7 - 3.3 LVPW d PLAX 0.76 cm F: 0.6 - 1.0 Ao Asc Diam d 3.58 cm F: 2.3 - 3.1 LVID d PLAX 5.94 cm F: 3.8 - 5.2 LVDs 4.23 cm F: 2.2 - 3.5 LV EF Teichholz 54.7 % FS 28.87 % LV EDV (Teich) 176.0 mL LV ESV (Teich) 79.7 mL Stroke Vol Index (Teich) 50.13 M-Mode TAPSE 2.63 cm (M/F) >1.7 Auto EF LV EDV A4C 95.8 mL LV EDV A2C 92.6 mL LV EDV BP 95.6 mL LV ESV A4C 43.4 mL LV ESV A2C 41.8 mL LV ESV BP 42.7 mL LVEF(%) A4C 54.7 % LVEF(%) A2C 54.9 % LVEF(%) BP 55.3 % LV SV A4C 52.4 ml LV SV A2C 50.9 ml LV SV BP 52.9 ml LV CO A4C 3.2 L/min LV CO A2C 3.1 L/min LV CO BP 3.2 L/min HR A4C 60.61 BPM HR A2C 61.65 BPM LV EDV Index (BP) LA Volume LA Length A4C 3.7 cm LA Length A2C 4.3 cm LA Area A4C s 10.26 cm2 LA Area A2C s 9.14 cm2 LA Vol A4C A-L 24.14 mL LA Vol A2C A-L 16.32 mL LA Vol Biplane A-L 21.5 mL LA Vol/BSA A4C A-L LA Vol/BSA A2C A-L LA Vol/BSA BP A-L 11.2 mL/m2 LA Vol A4C MOD 21.7 mL LA Vol A2C MOD 15.7 mL LA Vol BP MOD 20.0 mL RA Volume RA Area A4C 9.3 cm2 RA ESV A4C (A-L) 16.5mL RA Vol/BSA A4C A-L RA Length A4C 4.4 cm RA ESV A4C (MOD) 15.5mL LV Diastology MV E' medial 0.077 (>0.07 m/s) MV E Vmax 0.65 (0.4-1.3 m/s) MV E/E' MED 8.42 (<14) MV A Vmax 0.85 (0.4-1.3 m/s) MV E' lateral 0.064 (>0.1 m/s) E/A Ratio 0.8 MV E/E' LAT 10.06 (<14) MV E' Average 0.070 m/s MV E/E'(average) 9.17 Aortic Valve AoV Vmax 1.55 m/s LVOT Vmax 0.85 m/s AoV Peak Grad 9.6 mmHg LVOT Peak Grad 2.9 mmHg AoV Area (Vmax) 1.67 cm2 LVOT VTI 0.195 m AoV VTI 0.349 m LVOT Mean Grad 1.7 mmHg AoV Mean Manolo. 1.08 m/s LVOT SV 59.62 mL AoV Mean Grad 5.3 mmHg LVOT Diam s 1.95 cm AoV Area (VTI) 1.71 cm2 AV Regurg Peak Gr. 9.61 mmHg Velocity Ratio 0.55 Mitral Valve MV DT 225 (160-240 msec) Pulmonary Valve PV Vmax 0.80 (0.5-1.5 m/s) RVOT Vmax 0.62 m/s PV Peak Grad 2.6 mmHg RVOT Peak Gr. 1.5 mmHg PV Mean Manolo 0.60 m/s RVOT VTI 0.140 m PV Mean Grad 1.6 mmHg RVOT Mean Gr. 0.9 mmHg Tricuspid Valve RA Pressure 3.00 mmHg TR Vmax 2.34 m/s TR Peak Grad 21.8 mmHg RVSP (TR) 24.9 mmHg
== END 2025-03-07 09:26 ==
LOC: DI 09:06
PROVIDERS: PCP Nurse Practitioner Family; Visit Provider Nurse Practitioner Family
DX: R01.1 Cardiac murmur, unspecified (principal); R53.83 Other fatigue; R68.89 Other general symptoms and signs
CPT/HCPCS: 93306

== ENCOUNTER 2025-06-07 08:37 | Emergency (ER) | payer MEDICARE, SELFPAY ==
[2025-06-07 08:40] VITALS: BP 169/92; PULSE 75; RESP 16; TEMP 36.7; O2SAT 97
--- NOTE | 2025-06-07 09:00 | DI.RAD_ITS ---
Exam(s) XR CHEST 2V PA LATERAL EXAM: XR CHEST 2V PA LATERAL CLINICAL HISTORY: shortness of breath, cough x2 weeks TECHNIQUE: 2D digital imaging was performed of the chest. Two images were obtained. PA and lateral views were obtained. COMPARISON: CR XR CHEST 2V PA LATERAL from 11/29/2024 FINDINGS: MEDIASTINUM: Normal. HEART: Normal. PULMONARY VASCULATURE: Normal. LUNGS: Clear. PLEURAL SPACE: No pleural effusion or pneumothorax. BONE:Within normal limits for the patient's age. OTHER FINDINGS:Normal. IMPRESSION: No acute pulmonary findings. DATA REPOSITORY: RADIATION DOSE DELIVERED:
[2025-06-07] MEDS: Benzonatate 100 MG CAP PO (09:37)
[2025-06-07] MEDS: predniSONE 20 MG TAB 40 MG PO (09:37)
[2025-06-07 09:49] VITALS: RESP 18
--- NOTE | 2025-06-07 14:48 | W.ED.GENAD ---
Discharge Plan Disposition Patient Disposition: Home Condition: Stable Discharge Details Clinical Impression: Bronchitis Primary Care Provider: Loree Castellon ED Provider: Lima Simon Home Meds and New Rx's Prescriptions: New prednisone 20 mg tablet 40 mg PO DAILY Qty: 8 0RF doxycycline hyclate 100 mg capsule 100 mg PO BID Qty: 10 0RF Continued miscellaneous medical supply Misc See Rx Instructions miscellaneous .COMPLEX Qty: 3 4RF Rx Instructions: dispense 2 breast forms and 3 bras; vitamin K2 100 mcg capsule 100 mcg PO DAILY estradiol [Estrace] 0.01 % (0.1 mg/gram) cream 1 appful vaginal .Twice weekly Qty: 42.5 3RF thiamine HCl (vitamin B1) 100 mg tablet 100 mg PO DAILY atorvastatin 20 mg tablet 20 mg PO DAILY Qty: 90 3RF Gemtesa 75 mg tablet 75 mg PO DAILY Qty: 90 3RF estradiol 0.01 % (0.1 mg/gram) cream 0.5 appful vaginal .COMPLEX Qty: 42.5 5RF Rx Instructions: 0.5 appful vaginally twice weekly cholecalciferol (vitamin D3) 25 mcg (1,000 unit) tablet 2,000 unit PO DAILY Qty: 90 Patient Comments: will stop on 04/29/17 DCW losartan 50 mg tablet 50 mg PO DAILY Qty: 90 3RF Chlorahexide Mouth Rinse 10 ml PO DAILY krill oil [id number] mg capsule 1 cap PO DAILY Discharge Instructions Instructions: Bronchitis, Adult ED Additional Instructions: Use the albuterol inhaler 2 puffs every 4-6 hours as needed for cough, wheeze, shortness of breath Make sure you are drinking eight 8 ounce glasses of water daily Take the prednisone starting tomorrow you received a dose today Take the antibiotic as prescribed Recheck next week with persistent symptoms return earlier should you have new or worsening complaints Stand Alone Forms: Portal Information Referrals: Loree Castellon NP [Primary Care Provider, Medicine] HPI General Date/Time Provider Initiated Documentation: 06/07/25 08:49. HPI Narrative: This 79-year-old female with history of hyperlipidemia, breast cancer hypertension presents with report of upper respiratory symptoms for the past 2 weeks. Said she has not been on antibiotics. She was concerned because the cough was worse last night. Denies history of asthma or COPD does not smoke tobacco. Denies any calf swelling or tenderness denies any chest discomfort. Has a exertional dyspnea and states she gets this several times a year. Has not tried her at attempted her inhaler which she was prescribed at her previous illness. Denies history of coagulopathy or recent surgeries does occasionally use vaginal estrogen Related Data Home Medications ?Medication ?Instructions ?Recorded ?Confirmed Chlorahexide Mouth Rinse 10 ml PO DAILY 05/04/17 06/07/25 miscellaneous medical supply See Rx Instructions miscellaneous 12/08/22 06/07/25 .COMPLEX #3 ea atorvastatin 20 mg tablet 20 mg PO DAILY #90 tabs 12/27/24 06/07/25 vibegron 75 mg tablet (Gemtesa) 75 mg PO DAILY #90 tabs 02/07/25 06/07/25 estradiol 0.01% (0.1 mg/gram) 0.5 appful vaginal .COMPLEX #42.5 03/12/25 06/07/25 vaginal cream grams cholecalciferol (vitamin D3) 25 2,000 unit PO DAILY #90 tabs 04/03/25 06/07/25 mcg (1,000 unit) tablet thiamine HCl (vitamin B1) 100 mg 100 mg PO DAILY 04/03/25 06/07/25 tablet estradiol 0.01% (0.1 mg/gram) 1 appful vaginal .Twice weekly 04/04/25 06/07/25 vaginal cream (Estrace) #42.5 grams vitamin K2 100 mcg capsule 100 mcg PO DAILY 04/04/25 06/07/25 losartan 50 mg tablet 50 mg PO DAILY #90 tabs 04/29/25 06/07/25 doxycycline hyclate 100 mg capsule 100 mg PO BID #10 caps 06/07/25 krill 500 mg-omega-3 150 mg-dha 45 1 cap PO DAILY 06/07/25 06/07/25 mg-epa 75 [id number] capsule (krill oil) prednisone 20 mg tablet 40 mg (2 x 20 mg) PO DAILY #8 tabs 06/07/25 Previous Rx's ?Medication ?Instructions ?Recorded miscellaneous medical supply See Rx Instructions miscellaneous 12/08/22 .COMPLEX #3 ea atorvastatin 20 mg tablet 20 mg PO DAILY #90 tabs 12/27/24 vibegron 75 mg tablet (Gemtesa) 75 mg PO DAILY #90 tabs 02/07/25 estradiol 0.01% (0.1 mg/gram) 0.5 appful vaginal .COMPLEX #42.5 03/12/25 vaginal cream grams estradiol 0.01% (0.1 mg/gram) 1 appful vaginal .Twice weekly 04/04/25 vaginal cream (Estrace) #42.5 grams losartan 50 mg tablet 50 mg PO DAILY #90 tabs 04/29/25 doxycycline hyclate 100 mg capsule 100 mg PO BID #10 caps 06/07/25 prednisone 20 mg tablet 40 mg (2 x 20 mg) PO DAILY #8 tabs 06/07/25 Allergies Allergy/AdvReac Type Severity Reaction Status Date / Time lisinopril AdvReac COUGH Verified 06/07/25 08:45 General Stated Complaint: GenMedical GUILLERMO: 3 Exam Narrative Exam Narrative: Alert and oriented 79-year-old female in no acute distress lungs are clear to auscultation no calf swelling or tenderness appreciated, speaking in complete sentences cardiac rate rhythm regular without murmur rub Course Vital Signs Vital signs: Vital Signs Temperature 36.7 C 06/07/25 08:40 Pulse 75 06/07/25 08:40 Respiratory Rate 16 06/07/25 08:40 Blood Pressure 169/92 H 06/07/25 08:40 Pulse Oximetry 97 06/07/25 08:40 Temperature 36.7 C 06/07/25 08:40 Pulse 75 06/07/25 08:40 Respiratory Rate 18 06/07/25 09:49 Respiratory Effort Normal, Non-Labored 06/07/25 09:49 Respiratory Depth Normal 06/07/25 09:49 Respiratory Pattern Normal 06/07/25 09:49 Blood Pressure 169/92 H 06/07/25 08:40 Blood Pressure Position Sitting 06/07/25 08:40 Pulse Oximetry 97 06/07/25 08:40 Oxygen Delivery Method Room Air 06/07/25 08:40 Oxygen Flow Rate 0 06/07/25 08:40 Medical Decision Making Results: Chest x-ray per radiology interpretation my review does not show acute abnormality Assessment and plan: Patient with upper respiratory symptoms progressing to lower respiratory symptoms for the past week now with bronchospastic cough which is worsening per patient. After a DuoNeb treatment she is feeling marked improvement I did also supply patient with a dose of prednisone in the emergency department. Given longevity of her symptoms of 2 weeks and worsening cough, I did write for 5-day course of doxycycline to treat empirically for bronchitis. I also prescribed patient prednisone and an albuterol inhaler with spacer which she will use. 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 felt to be etiology of vaginal bleeding. 2019. Vaginal E2 with improvement in bleeding 2021. Stop vaginal E2. 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 in endocervical canal. ES 1mm. incidental finding on pelvis u/s 06/09/20 . Unable to perform EMBx. Stenotic os. Bladder mass Excessive drinking alcohol we discussed cancer risk increase (GI and breast) cardiovascular benefit from ETOH for women is 1 oz/day Overweight Hypertension Breast cancer Hyperlipidemia Depression Sebaceous cyst Right labia minora-not problematic Post-menopausal bleeding 2010. onset. u/s 3mm ES. Uterus [id number]. EMBx: atrophic endometrium. 2011. continued daily bleeding. Hysteroscopy, D&C. Inactive endometrium. 2012. continued daily dark/brown blood. 2013. u/s ES 3mm. 2014. No w/u. 11/2016. contact bleeding at ext os. Surgical History Abnormal vaginal bleeding (05/10/17) Multiple U/S of ES and several EMBX. 05/04/2017 Hysteroscopy and D&C. Benign findings. 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 Daughter No problems noted. Brother No problems noted. Brother No problems noted. Brother No problems noted. Social History Smoking/Tobacco Use Status: Former Tobacco Use tobacco type: cigarettes Quit Date: 06/20/95 Tobacco: How many years used: 25 Second Hand Exposure: Yes Smoking risk assessment performed?: Yes Alcohol Intake: current Alcohol Intake frequency: a few times a month Alcohol type: hard liquor Drug use: Never Substance use type: does not use Counseling given: No Caregiver/Support person: No Household members: spouse Housing: house Number of Children: 2 Communication Needs: None Do you need help understanding health information?: Never Pets and animals: No Sexually active: No Do you think of yourself as: straight/heterosexual Current gender identity: female What is your relationship status?: How often do you talk on the phone with friends or family?: twice per week How often do you get together with friends or relatives?: once per week How often do you attend anabaptism or protestant services?: decline to answer Do you belong to any clubs or organized social groups?: no Panel score (0-1 are the most socially isolated patients): 2 What type of physical activity do you participate in: none Emi/Zoroastrianism: Congregation Seatbelt use: always Drive intox or ride w/intox commercial front load driver: No Do you feel safe at home: Yes Do you feel safe in your relationship?: Yes Female Reproductive History Menstrual Menopause type: natural History History 2 Para Hx # Term Pregnancies 2 Multiple births Hx # Pregnancies Ectopic pregnancies AB induced Hx Number of Living Children AB spontaneous PAWSS Have you Been Recently Intoxicated or Drunk Within the Last 30 days?: No Have you Ever Experienced Previous Episodes of Alcohol Withdrawal?: No Have you ever Experienced Withdrawal Seizures?: No Have you ever Experienced Delirium Tremens(DT)s?: No Have you ever undergone Alcohol Rehabilitation Treatment (i.e, inpt ot outpatient treatment programs)?: No Have you ever Experienced Blackouts?: No Have you ever Combined Alcohol with other Downers within the last 90 days?: No Have you ever Combined Alcohol with any other Substance of Abuse during the last 90 days?: No Positive Blood Alcohol level on Presentation? [PCS.BAL]: No Evidence of Increased Autonomic Activity (i.e. HR>120, tremor, sweating, agitation, nausea)?: No Result: 0
== END 2025-06-07 18:23 | disposition home or self-care (01) ==
PROVIDERS: Emergency Provider Physician Assistant; PCP Nurse Practitioner Family
DX: J40 Bronchitis, not specified as acute or chronic (principal)
CPT/HCPCS: 99283 ×2; 71046; J7512